=== PATIENT | female | born 1970 | race African-American/Black ===

== ENCOUNTER 2017-11-11 10:04 | Emergency (ER) | payer SELFPAY ==
[~2017-11-11] VITALS: Ht 167.6 cm; Wt 100.0 kg
[2017-11-11 10:05] VITALS: BP 180/96; PULSE 96; RESP 18; TEMP 99.3; O2SAT 96
[2017-11-11] MEDS ORDERED: HYDR25TA5 PO (10:32)
[2017-11-11] MEDS ORDERED: AMOX500T PO (10:54)
[2017-11-11] MEDS ORDERED: IBUP1TAB7 PO (10:54)
--- NOTE | 2017-11-11 10:54 | PD ---
HPI Chief Complaint: ENT Complaint Time Seen by Provider: 10:31 Travel History International Travel<30 days: No Contact w/Intl Traveler<30days: No Traveled to known affect area: No History of Present Illness HPI 46-year-old female here with left ear pain and swollen lymph nodes 4 days. She reports the pain as constant, throbbing, nonradiating. Symptom severity is moderate. No aggravating or alleviating factors. Denies drainage from the ear , fever or chills. PFSH Past Medical History Narrative Medical Significant for hypertension. ?: Not Social History Tobacco Use: No Allergies-Medications (Allergen,Severity, Reaction): Uncoded Allergies: "YVES" (Adverse Reaction, Unknown, 11/11/17) Reported Meds & Prescriptions Reported Meds & Active Scripts Active Reported Hydrochlorothiazide 25 Mg Tab 25 Mg PO DAILY Review of Systems Except as stated in HPI: all other systems reviewed are Neg General / Constitutional: No: Fever HENT: Positive: Earache Cardiovascular: No: Chest Pain or Discomfort Respiratory: No: Shortness of Breath Gastrointestinal: No: Abdominal Pain Genitourinary: No: Dysuria Physical Exam Narrative GENERAL: Alert female. Well-appearing. SKIN: Warm and dry. HEAD: Normocephalic. EYES: No injection or drainage. EARS: Mild left TM erythema, bulging, loss of landmarks. No canal swelling or drainage. No mastoid tenderness. THROAT: No pharyngeal erythema, tonsillar hypertrophy or exudate. Uvula is midline. Airway is patent. NECK: Supple, trachea midline. Mild left submandibular lymphadenopathy. CARDIOVASCULAR: Regular rate and rhythm without murmurs, gallops, or rubs. RESPIRATORY: Breath sounds equal bilaterally. No accessory muscle use. GASTROINTESTINAL: Abdomen soft, non-tender, nondistended. MUSCULOSKELETAL: No cyanosis, or edema. BACK: Nontender without obvious deformity. No CVA tenderness. Data Data Last Documented VS Vital Signs Date Time Temp Pulse Resp B/P (MAP) Pulse Ox O2 Delivery O2 Flow Rate FiO2 11/11/17 10:05 99.3 96 18 180/96 (124) 96 Room Air MDM Medical Decision Making Medical Screen Exam Complete: Yes Emergency Medical Condition: Yes Differential Diagnosis Otitis media, otitis externa, mastoiditis Narrative Course 46-year-old female with left ear pain. On exam she has otitis media with mild left submandibular lymphadenopathy. She is well-appearing. Patient will be treated with amoxicillin. Diagnosis Primary Impression: Otitis media Qualified Codes: H66.002 - Acute suppurative otitis media without spontaneous rupture of ear drum, left ear Referrals: Primary Care Physician Additional Instructions: Antibiotics as prescribed. Ibuprofen as needed for pain. Follow-up with her primary doctor Scripts Ibuprofen (Ibuprofen) 800 Mg Tab 800 MG PO Q6HR Y for PAIN, #40 TAB 0 Refills Prov: Hollie Florez 11/11/17 Amoxicillin (Amoxicillin) 500 Mg Tab 500 MG PO TID for Infection for 10 Days, TAB 0 Refills Prov: Hollie Florez 11/11/17 Disposition: 01 DISCHARGE HOME Condition: Stable Hollie Florez Nov 11, 2017 10:54
== END 2017-11-11 12:05 | disposition home or self-care (01) ==
LOC: NEPK 10:04
DX: H66.002 Acute suppurative otitis media without spontaneous rupture of ear drum, left ear (principal); I10 Essential (primary) hypertension
CPT/HCPCS: 99283